=== PATIENT | male | born 1990 | race Caucasian/White ===

== ENCOUNTER 2018-09-19 14:04 | Emergency (ER) | payer SELFPAY ==
--- NOTE | 2018-09-19 14:10 | ER Report ---
History and Physical Time Seen By MD: 14:10 HPI/ROS CHIEF COMPLAINT: Mid thoracic back pain HISTORY OF PRESENT ILLNESS: Patient is a 27-year-old male here with complaints of mid thoracic back pain after stretching and working out today. Patient reports that the pain started this morning and has been persistent ever since. He reports exacerbation with moving his neck but feels point tenderness in the mid thoracic midline intraspinous musculature. Patient denies other trauma, fevers, numbness, weakness. REVIEW OF SYSTEMS: Constitutional: No fever, no chills. Eyes: No discharge. ENT: No sore throat. Cardiovascular: No chest pain, no palpitations. Respiratory: No cough, no shortness of breath Musculoskeletal: + midline thoracic back pain Skin: No rashes. Neurological: No focal deficits Allergies: Coded Allergies: No Known Drug Allergies (Unverified , 09/19/18) Home Meds Active Scripts Tramadol Hcl (TRAMADOL HCL) 50 Mg Tablet, 50 MG PO Q6H PRN for PAIN, #12 TAB 0 Refills Prov:DERIK CHILDERS DO 09/19/18 Cyclobenzaprine Hcl (CYCLOBENZAPRINE HCL) 10 Mg Tablet, 10 MG PO Q8H PRN for MUSCLE SPASMS, #20 TAB 0 Refills Prov:CHILDERSDERIK Andreea DO 09/19/18 Constitutional Vital Sign - Last 24 Hours 09/19/18 14:13 Temp 98.2 Pulse 84 Resp 20 B/P (MAP) 160/117 Pulse Ox 96 Physical Exam General Appearance: The patient is alert, has no immediate need for airway protection and no signs of toxicity. Mild distress secondary to pain Neurological: No focal neuro deficits Skin: Warm and dry, no rashes. Musculoskeletal: Back is supple with point tenderness in the mid thoracic midline around T4-T5. Extremities are nontender, nonswollen and have full range of motion. DIFFERENTIAL DIAGNOSIS: After history and physical exam differential diagnosis was considered for muscle spasm, muscle strain, tendon strain, fracture Medical Decision Making ED Course/Re-evaluation ED Course Patient is a 27-year-old male here with complaints of mid thoracic back pain consistent with muscle spasm with point tenderness around T4-T5. Point of maxi mum tenderness was identified and injected with Kenalog 40 mg and a 1-1 ratio with 2 mL 2% lidocaine. Patient also was given Toradol for analgesia and anti- inflammatory properties. Patient was given scripts for Flexeril and tramadol for outpatient treatment. Patient had no focal neurological deficits. Patient was well-appearing and in no acute distress at time of discharge. Procedure Tender point injection : Point of maximum tenderness was identified at T4-T5 midline intraspinous musculature. The site was cleaned using alcohol prep swab.the site was injected using Kenalog 40 mg and a 1-1 ratio with 2 mL 2% lidocaine. A Band-Aid was placed on the site, hemostasis was achieved and the patient tolerated the procedure well Decision to Disposition Date: Sep 19, 2018 Decision to Disposition Time: 14:36 Depart Departure Latest Vital Signs Vital Signs Date Time Temp Pulse Resp B/P (MAP) Pulse Ox O2 Delivery O2 Flow Rate FiO2 09/19/18 14:13 98.2 84 20 160/117 96 Impression: Primary Impression: Muscle spasm of back Condition: Improved Disposition: HOME OR SELF-CARE New Scripts Tramadol Hcl (TRAMADOL HCL) 50 Mg Tablet 50 MG PO Q6H PRN for PAIN, #12 TAB 0 Refills Prov: DERIK CHILDERS DO 09/19/18 Cyclobenzaprine Hcl (CYCLOBENZAPRINE HCL) 10 Mg Tablet 10 MG PO Q8H PRN for MUSCLE SPASMS, #20 TAB 0 Refills Prov: DERIK CHILDERS DO 09/19/18 Patient Instructions: Muscle Spasm (ED) Additional Instructions: You may take naproxen 500 mg twice daily for primary pain control and 1 tablet of tramadol every 6-8 hours as needed for breakthrough pain. You may take Flexeril one tablet every 6-8 hours as needed for muscle spasm. Please return promptly if you develop worsening pain, weakness, numbness, fevers, trouble breathing. Please follow-up with your family doctor in next couple days for follow-up evaluation and care. DERIK CHILDERS DO Sep 19, 2018 14:10
[2018-09-19 14:13] VITALS: BP 160/117
[2018-09-19] MEDS ORDERED: LIDOCAINE 2% IV 100 MG/5ML SYR IVP ONE (14:15)
[2018-09-19] MEDS ORDERED: KETOROLAC 60 MG/2 ML VIAL IM ONE (14:15)
[2018-09-19] MEDS ORDERED: TRIAMCINOLONE ACE 40 MG/ML VL IM ONE (14:15)
[2018-09-19] MEDS ORDERED: LIDOCAINE 2% MDV 400MG/20ML VL ONE (14:24)
[2018-09-19] MEDS ORDERED: TRAM-420 PO (14:38)
[2018-09-19] MEDS ORDERED: CYCL10TA29 PO (14:38)
== END 2018-09-19 14:48 | disposition home or self-care (01) ==
LOC: ER 14:42
DX: M62.830 Muscle spasm of back (principal)
CPT/HCPCS: 20552; 96372; 99283; J1885; J2001; J3301